=== PATIENT | male | born 1945 | race Caucasian/White ===

== ENCOUNTER → 2021-02-21 | Outpatient (CLI) | payer OTHER ==
--- NOTE | 2021-02-21 14:17 | 2DMMODE ---
[facility] [place] [address] 2 D/M-MODE ECHOCARDIOGRAM Name: HORACIO BREWER Room #: REG TALYAAnne Marie Gilbert#: [id number] Admission: 02/21/21 Attend Phys: Galindo Roman Discharge: Date of : 47 Report #: [id number] THIS REPORT FOR: cc: JAN FARIAS MD Physician not on staff Nicolas Simon MD [facility] ~ APPROVED REPORT Study performed: 02/21/2021 10:39:50 EXAM: Comprehensive 2D, Doppler, and color-flow Echocardiogram Patient Location: Out-Patient Room #: 2 Status: routine BSA: 1.77 HR: 85 bpm BP: 130/82 mmHg Rhythm: Atrial Fibrillation Other Information Study Quality: Good Indications CAD Hypertension/HDD 2D Dimensions RVDd: 31.25 mm IVSd: 8.83 (7-11mm) LVOT Diam: 23.40 (18-24mm) LVDd: 45.16 mm PWd: 9.48 (7-11mm) Ascending Ao: 38.68 (22-36mm) LVDs: 33.90 (25-40mm) Left Atrium: 37.50 (27-40mm) Aortic Root: 36.04 mm Volumes Left Atrial Volume (Systole) Single Plane 4CH: 49.40 mL Single Plane 2CH: 94.65 mL LA ESV Index: 45.00 mL/m2 Aortic Valve AoV Peak Ariel.: 0.93 m/s AO Peak Gr.: 3.46 mmHg LVOT Max P.05 mmHg LVOT Max V: 0.72 m/s [facility] [address] [place] [address] 2 D/M-MODE ECHOCARDIOGRAM Name: HORACIO BREWER Room #: REG Vladimir#: [id number] Admission: 02/21/21 Attend Phys: Galindo Mata Discharge: Date of : 47 Report #: [id number] [id number] Vmax: 3.31 cm2 Pulmonary Valve PV Peak Ariel.: 0.87 m/s PV Peak Gr.: 3.02 mmHg Tricuspid Valve TR Peak Ariel.: 2.29 m/s TR Peak Gr.: 21.09 mmHg PA Pressure: 31.00 mmHg Left Ventricle The left ventricle is normal size. There is normal LV segmental wall motion. There is normal left ventricular wall thickness. The left ventricular systolic function is normal. The left ventricular ejection fraction is within the normal range. LVEF is 55-60%. This study is not technically sufficient to allow evaluation of the LV diastolic function due to atrial fibrillation. Right Ventricle The right ventricle is normal size. The right ventricular systolic function is normal. Atria Left atrium is dilated. Right atrium is dilated. Aortic Valve The aortic valve is normal in structure. The Aortic valve is sclerotic. Trace aortic regurgitation. There is no aortic valvular stenosis. Mitral Valve The mitral valve is normal in structure. Mild mitral regurgitation. No evidence of mitral valve stenosis. Tricuspid Valve The tricuspid valve is normal in structure. There is mild tricuspid regurgitation. Estimated PAP 31mmHg. There is mild pulmonary hypertension. Pulmonic Valve The pulmonary valve is normal in structure. There is no pulmonic valvular regurgitation. Great Vessels The aortic root is normal in size. IVC is normal in size and collapses <50% with inspiration. [facility] [address] [address] 2 D/M-MODE ECHOCARDIOGRAM Name: DANIELLAHORACIO Room #: REG [facility].#: [id number] Admission: 02/21/21 Attend Phys: Galindo Mata Discharge: Date of : 47 Report #: [id number] Pericardium There is no pericardial effusion. <Conclusion> Normal left ventricular size/wall thickness Ejection fraction 55% Normal right ventricular size/function Normal atrial size Color-flow Doppler studies performed the aortic/mitral/tricuspid/pulmonary valve Mild aortic valve sclerosis without stenosis Mild mitral annular calcification Mild mitral valve insufficiency Mild tricuspid valve insufficiency Pulmonary systolic pressure estimated of 31 mmHg No pericardial effusion Normal aortic root size. <ELECTRONICALLY SIGNED> By: Nicolas Simon MD, [facility] 02/21/21 [id number] Nicolas Simon MD, FACC /INF
== END ==
LOC: CV 11:19
PROVIDERS: ATTEND Chiropractor
DX: I08.3 Combined rheumatic disorders of mitral, aortic and tricuspid valves (principal); I25.9 Chronic ischemic heart disease, unspecified